=== PATIENT | female | born 1980 | race Caucasian/White ===

== ENCOUNTER 2019-09-11 18:51 | Emergency (ER) | payer OTHER ==
[2019-09-11 18:57] VITALS: PULSE 111; TEMP 98.2; BMI 23.8
--- NOTE | 2019-09-11 19:40 | PDOC ---
History of Present Illness - General Chief Complaint: Weakness Stated Complaint: WEAKNESS Time Seen by Provider: 09/11/19 19:40 History Source: Patient, Family, Pt declined [employer] Architect Exam Limitations: Language Barrier - History of Present Illness Initial Comments: Pt is bermudian speaking, stated she prefers to communicate through her brother at bedside. Pt declined phone cuprous chloride helper. 39 year old female with PMH ESRD on HD (M/W/F through R chest permacath since ), seizure disorder (1 seizure in 2019 2/2 HTN per brother), HTN (only takes medication when it is high) presented to the Emergency Department for generalized weakness, lightheadedness, dizziness, bilateral lower extremity weakness since today. Pt reported she was at Dialysis and during the last ten minutes of her session (around 1330) she felt dizzy and weak. She reported she went home and then her blood pressure was elevated, she attempted to take a Clonidine 0.1 mg once, but immediately threw it up, prompting her to come to the Emergency Department. Pt denied chest pain, back pain, headache, weakness. She reported she feels her lower extremities are "heavy" from the knees down. She reported numbness to bilateral hands and feet, as well as around her mouth. Pt reported she is relatively new to dialysis, starting in July 2019. She reported the reason for her renal failure was 2/2 an infection, but she could not be more specific than that and her care was not at this hospital. She reported prior to this incident she did not have any medical problems or take any daily oral medication. Pt reported she only produces a small amount of urine in the morning. ROS General: admitted to generalized weakness. denied fever, chills. HEENT: denied sore throat, rhinorrhea, ear pain, visual changes. Cardiovascular: denied chest pain, palpitations, syncope, diaphoresis. Respiratory: denied shortness of breath, cough, sputum production, hemoptysis. Gastrointestinal: admitted to nausea, vomiting. denied abdominal pain, diarrhea , constipation, blood in stool. Genitourinary: denied dysuria, increased urinary frequency, hematuria, urinary incontinence, flank pain. Back: denied back pain. Musculoskeletal: denied joint pain, muscle pain, joint swelling. Neurological: admitted to tingling, dizziness. denied headache, weakness. Integumentary: denied rash, laceration, abrasion. Hematologic/Lymphatic: denied bruising or bleeding. PE Constitutional: Well-nourished, Well-developed, appearing stated age. HEENT: head is normocephalic, atraumatic. EOMI. PERRLA. Neck: supple. Full ROM. Chest: right chest permacath, covered, no surrounding erythema. Cardiovascular: regular heart rhythm. Normal S1 and S2. no murmurs. no pericardial friction rub. Respiratory: clear to auscultation bilaterally. no crackles, rhonchi or wheezing. no stridor. Gastrointestinal: soft, flat, nontender. normal bowel sounds. no rebound, guarding, or masses. Extremities: peripheral pulses intact and equal. 2+ DSP bilaterally. bilateral feet equal warmth. no lower extremity edema noted. Neurological: CN 2-12 intact. 5/5 strength all extremities. full sensation throughout. gait not observed. Psych: awake, alert, oriented x3. follows commands. answers questions appropriately. Past History - Past Medical History Allergies/Adverse Reactions: Allergies Allergy/AdvReac Type Severity Reaction Status Date / Time No Known Allergies Allergy Verified 09/11/19 18:57 - Psycho Social/Smoking Cessation Hx Smoking History: Never smoked *Physical Exam - Vital Signs Last Vital Signs Temp Pulse Resp BP Pulse Ox 98.2 F 111 H 19 148/129 H 100 09/11/19 18:53 09/11/19 18:53 09/11/19 18:53 09/11/19 18:53 09/11/19 18:53 ED Treatment Course - LABORATORY CBC & Chemistry Diagram: 09/11/19 22:30 09/11/19 22:30 Medical Decision Making - Medical Decision Making 39 year old female with above PMH presented to ED for generalized weakness, dizziness, bilateral lower extremity heaviness since today, associated with HTN at home and an episode of vomiting. Initial Vital Signs Temp Pulse Resp BP Pulse Ox 98.2 F 111 H 19 148/129 H 100 09/11/19 18:53 09/11/19 18:53 09/11/19 18:53 09/11/19 18:53 09/11/19 18:53 Afebrile. Tachycardic. No tachypnea. Hypertensive. No hypoxia on room air. Labs ordered: CBC, CMP, Mg, Phos, Serum , cardiac profile Imaging ordered: CXR Medications ordered: none EKG performed at 1926: rate 101, regular rhythm, normal axis, normal intervals, QTc 464, flipped T V3-V6 - No prior to compare Dr. Rocael Ly, 's it specialist, paged at [phone]. 09/12/19 00:18 Laboratory Last Values WBC 8.1 K/mm3 (4.0-10.0) 09/11/19 22:30 RBC 3.94 M/mm3 (3.60-5.2) 09/11/19 22: Hgb 12.3 GM/dL (10.7-15.3) 09/11/19: Hct 36.5 % (32.4-45.2) 09/11/19: MCV 92.8 fl (80-96) 09/11/19: MCH 31.3 pg (25.7-33.7) 09/11/19: MCHC 33.7 g/dl (32.0-36.0) 09/11/19: RDW 14.6 % (11.6-15.6) 09/11/19: Plt Count 323 K/MM3 (134-434) 09/11/19: MPV 9.6 fl (7.5-11.1) 09/11/19: Absolute Neuts (auto) 5.3 K/mm3 (1.5-8.0) 09/11/19: Neutrophils % 65.0 % (42.8-82.8) 09/11/19: Lymphocytes % 23.9 % (8-40) 09/11/19: Monocytes % 8.2 % (3.8-10.2) 09/11/19: Eosinophils % 1.7 % (0-4.5) 09/11/19: Basophils % 1.2 % (0-2.0) 09/11/19: Nucleated RBC % 0 % (0-0) 09/11/19 22: Sodium 134 mmol/L (136-145) L 09/11/19 22:30 Potassium 3.2 mmol/L (3.5-5.1) L 09/11/19: Chloride 94 mmol/L (98-107) L 09/11/19 22:30 Carbon Dioxide 31 mmol/L (21-32) 09/11/19 22:30 Anion Gap 9 MMOL/L (8-16) 09/11/19 22:30 BUN 12.7 mg/dL (7-18) 09/11/19 22:30 Creatinine 5.5 mg/dL (0.55-1.3) H 09/11/19 22:30 Est GFR (CKD-EPI)AfAm 10.54 09/11/19:30 Est GFR (CKD-EPI)NonAf 9.09 09/11/19:30 Random Glucose 100 mg/dL (74-106) 09/11/19: Calcium 8.5 mg/dL (8.5-10.1) 09/11/19: Phosphorus 3.2 mg/dL (2.5-4.9) 09/11/19: Magnesium 2.2 mg/dL (1.8-2.4) 09/11/19: Total Bilirubin 0.3 mg/dL (0.2-1) 09/11/19 22:30 AST 10 U/L (15-37) L 09/11/19:30 ALT 15 U/L (13-61) 09/11/19: Alkaline Phosphatase 77 U/L (45-117) 09/11/19: Creatine Kinase 58 U/L (26-192) 09/11/19:30 Troponin I 0.02 ng/ml (0.00-0.05) 09/11/19: Total Protein 7.1 g/dl (6.4-8.2) 09/11/19: Albumin 3.9 g/dl (3.4-5.0) 09/11/19: Beta HCG, Quant < 1.0 mIU/ml 09/11/19: No anemia. Mild hypokalemia. Troponin undetectable. Serum testing negative. 09/12/19 00:38 Pt reassessed, reported that symptoms have improved, but now she has a slight headache. Has not eaten since 2 pm. Tylenol ordered. Pt advised to F/U promptly with PCP, agreed with plan for care, was given return precautions and encouraged to return if further symptoms worsen or develop. Vital Signs Respiratory Rate 18 09/11/19 23:05 Blood Pressure 129/99 09/11/19 23:05 O2 Sat by Pulse Oximetry (%) 100 09/11/19 23:05 Discharge - Discharge Information Problems reviewed: Yes Clinical Impression/Diagnosis: Weakness, Dizziness, Hypokalemia Condition: Improved Disposition: HOME - Admission No - Follow up/Referral Referrals: ON STAFF,NOT [Primary Care Provider] - - Patient Discharge Instructions Patient Printed Discharge Instructions: DI for Dialysis, DI for Hypokalemia Additional Instructions: Follow up with your primary care doctor within 3 days, your care is not compete until you follow up. Bring all paperwork to your appointment that was given to you today. Follow up with your it specialist within 3 days, your care is not compete until you follow up. Bring all paperwork to your appointment that was given to you today. Your potassium was mildly low, please have your primary care doctor repeat this blood test within 7 days. Return to the Emergency Department for chest pain, shortness of breath, lightheadedness, vomiting, passing out, palpitations, weakness, numbness, tingling, or any other new, worsening or concerning symptoms. ---- YEMENI TRANSLATION PROVIDED BY [employer] TRANSLATE Liane un seguimiento con cristobal mdico de atencin primaria dentro de los 3 alex, cristobal atencin no es competitiva hasta que realice el seguimiento. Traiga todos los documentos a cristobal lay que le dieron hoy. Liane un seguimiento con cristobal nefrlogo dentro de los 3 alex, cristobal atencin no ser competitiva hasta que realice el seguimiento. Traiga todos los documentos a cristobal lay que le dieron hoy. Cristobal potasio fue levemente bajo, liane que cristobal mdico de atencin primaria repita carlos enrique anlisis de alonzo dentro de los 7 alex. Regrese al departamento de emergencias por dolor en el pecho, dificultad para respirar, mareos, vmitos, desmayos, palpitaciones, debilidad, entumecimiento, hormigueo o cualquier otro sntoma nuevo, que empeore o se relacione. - Post Discharge Activity Work/Back to School Note: Back to Work
--- NOTE | 2019-09-11 20:02 | PDOC ---
Documentation entered by Aurelio Virgen SCRIBE, acting as scribe for Cecilia Kingsley MD. Cecilia Kingsley MD: This documentation has been prepared by the mimieParam Angel, SCRIBE, under my direction and personally reviewed by me in its entirety. I confirm that the documentation accurately reflects all work, treatment, procedures, and medical decision making performed by me. Attending Attestation - Resident Resident Name: Glenda Muñoz - ED Attending Attestation I have performed the following: I have examined & evaluated the patient, The case was reviewed & discussed with the resident, I agree w/resident's findings & plan, Exceptions are as noted - HPI HPI: 09/11/19 20:02 This 39-year-old female has been feeling dizzy ever since she finished her dialysis at approximately 230 this afternoon. HPI she has been on dialysis for several months on Wednesday and Wednesday and her pool hall inspector is Dr. Ly and Dr. Ponce 09/11/19 20:25 The patient is a 39 year old female with a significant past medical history of ESRD on HD (wednesday, wednesday, wednesday), seizure disorder and HTN who presents to the ED with BLE, hand and cecum oral heaviness, tingling and dizziness s/p dialysis. Pt reports she was able to complete her dialysis session and was able to go home afterwards. The patient denies chest pain, shortness of breath, fever, chills, cough, nausea, vomiting, diarrhea and constipation. Allergies: NKDA - Physicial Exam PE: 09/11/19 20:25 GENERAL: Awake, alert, and fully oriented, in no acute distress HEAD: No signs of trauma NECK: Normal ROM, supple, no lymphadenopathy, JVD, or masses CHEST: +right chest permacath, covered, no surrounding erythema. LUNGS: Breath sounds equal, clear to auscultation bilaterally. No wheezes, and no crackles HEART: Regular rate and rhythm, normal S1 and S2, no murmurs, rubs or gallops ABDOMEN: Soft, nontender, normoactive bowel sounds. No guarding, no rebound. No masses EXTREMITIES: Normal range of motion, no edema. No clubbing or cyanosis. No cords, erythema, or tenderness NEUROLOGICAL: Cranial nerves II through XII grossly intact. SKIN: Warm, Dry, normal turgor, no rashes or lesions noted. - Medical Decision Making 09/11/19 23:31 Creatinine equal to 5.5 BUN equal to 12 Potassium is 3.2 Chest x-ray shows a normal mediastinum, no pneumothorax, no infiltrates or effusions 09/12/19 20:53 cxr no infiltrates pt discharged home,feels much better
[2019-09-11 22:39] LABS: BASO % 1.2 % (0-2.0); EOS % 1.7 % (0-4.5); HEMATOCRIT 36.5 % (32.4-45.2); HEMOGLOBIN 12.3 GM/dL (10.7-15.3); LYMPH % 23.9 % (8-40); MCH 31.3 pg (25.7-33.7); MCHC 33.7 g/dl (32.0-36.0); MEAN CELL VOLUME 92.8 fl (80-96); MEAN PLT VOLUME 9.6 fl (7.5-11.1); MONO % 8.2 % (3.8-10.2); PLATELET COUNT 323 K/MM3 (134-434); RBC 3.94 M/mm3 (3.60-5.2); RDW 14.6 % (11.6-15.6); WHITE BLOOD COUNT 8.1 K/mm3 (4.0-10.0)
[2019-09-11 23:13] LABS: ALBUMIN 3.9 g/dl (3.4-5.0); BILIRUBIN,TOTAL 0.3 mg/dL (0.2-1); BLOOD UREA NITROGEN 12.7 mg/dL (7-18); CALCIUM 8.5 mg/dL (8.5-10.1); CREATININE 5.5 mg/dL (0.55-1.3); MAGNESIUM 2.2 mg/dL (1.8-2.4); PHOSPHOROUS 3.2 mg/dL (2.5-4.9); POTASSIUM 3.2 mmol/L (3.5-5.1); TOT PROT 7.1 g/dl (6.4-8.2)
[2019-09-11 23:22] VITALS: BP 129/99
[2019-09-11] MEDS ORDERED: ACETAMINOPHEN 325 MG TABLET (FP) PO ONE (23:29)
[2019-09-12] MEDS ORDERED: ACETAMINOPHEN 325 MG TABLET (FP) ONE (01:03)
--- NOTE | 2019-09-12 13:03 | EKG ---
Test Reason : Blood Pressure : / mmHG Vent. Rate : 101 BPM Atrial Rate : 101 BPM P-R Int : 124 ms QRS Dur : 074 ms QT Int : 358 ms P-R-T Axes : 056 024 000 degrees QTc Int : 464 ms SINUS TACHYCARDIA T WAVE ABNORMALITY, CONSIDER ANTEROLATERAL ISCHEMIA ABNORMAL ECG NO PREVIOUS ECGS AVAILABLE Confirmed by Zoltan Lara MD ([id number]) on 09/12/2019 1:02:57 PM Referred By: Confirmed By:Zoltan Lara MD
== END 2019-09-12 01:14 | disposition home or self-care (01) ==
LOC: JER 18:51 → SUPCPDRO 18:51 → JER 09-12 01:14
DX: E87.6 Hypokalemia (principal); R53.1 Weakness; I12.0 Hypertensive chronic kidney disease with stage 5 chronic kidney disease or end stage renal disease; N18.6 End stage renal disease; N17.8 Other acute kidney failure; Z99.2 Dependence on renal dialysis; G40.909 Epilepsy, unspecified, not intractable, without status epilepticus
CPT/HCPCS: 36415; 71046-TC-FY; 80053; 82550; 83735; 84100; 84484; 84702; 85025; 93005; 93010; 99285-25